=== PATIENT | male | born 1935 | race Caucasian/White ===

== ENCOUNTER 2017-10-17 08:16 | Observation (INO) | payer OTHER ==
[~2017-10-17] VITALS: Ht 180.3 cm; Wt 124.1 kg
[~2017-10-17 08:16] MED LIST: ASCORBIC ACID500 M3 PO; ASPIR-LOW81 MG PO; CENTRUM SILVER1 EAC3 PO; COQ-10100 MG PO; DOXYCYCLINE HYC50 MG PO; LOSARTAN POTASS25 MG PO; METFORMIN HCL500 MG PO; MOVE FREE ULTR1 EACH PO; NORCO 5/3251 TABLET PO; PRAVASTATIN SOD80 MG PO; PRESERVISION A1 EAC2 PO; PRILOSEC20 MG PO; VITAMIN E200 UNI2 PO; ZETIA10 MG PO
[2017-10-17 09:12] LABS: BASOPHIL (%) 0.4 % (0-1); BASOPHIL COUNT 0.1 K/uL (0-0.1); EOSINOPHIL (%) 1.1 % (0-5); EOSINOPHIL COUNT 0.2 K/uL (0-0.3); HEMATOCRIT 37.8 % (38.0-50.0); HEMOGLOBIN 12.7 G/DL (12.5-16.6); IMMATURE GRANULOCYTE (%) 0.5 % (0.0-0.7); LYMPHOCYTE (%) 12.5 % (15-42); MCH 30.9 PG (29.0-34.0); MCHC 33.6 G/DL (30.0-36.0); NEUTROPHIL (%) 79.5 % (45-76); NEUTROPHIL COUNT 12.8 K/uL (1.8-6.4); PLATELET COUNT 230 K/uL (156-360); RBC DIS.WIDTH-CV 14.3 % (11.8-14.6); RBC DIS.WIDTH-SD 48.5 % (39-53); RED BLOOD COUNT 4.11 M/uL (4.00-5.50); WHITE BLOOD COUNT 16.1 K/uL (4.1-10.2)
[2017-10-17 09:20] LABS: CHLORIDE 108 mEq/L (99-109); POTASSIUM 4.7 mEq/L (3.7-5.4); SODIUM 142 mEq/L (136-147)
[2017-10-17 09:22] LABS: GLUCOSE 227 mg/dL (70-99)
[2017-10-17 09:26] LABS: GFR ESTIMATE (CALCULATED) > 59 mL/min/ (58.99-99999); UREA NITROGEN (BUN) 28 mg/dL (9-23)
[2017-10-17] MEDS ORDERED: ODORLESS GARL1250 MG PO (12:10)
[2017-10-17] MEDS ORDERED: GLIPIZIDE ER2.5 MG PO (12:10)
[2017-10-17] MEDS ORDERED: PIOGLITAZONE HC15 MG PO (12:10)
[2017-10-17 14:54] LABS: HEMOGLOBIN A1c (GLYCOHEMOGLOB) 6.6 % (Below 5.7)
[2017-10-17 15:14] VITALS: BP 152/68
[2017-10-17 19:00] VITALS: BP 120/59
[2017-10-17 19:49] LABS: HEMATOCRIT 34.7 % (38.0-50.0); HEMOGLOBIN 11.3 G/DL (12.5-16.6)
[2017-10-17 23:57] VITALS: BP 119/58
[2017-10-18 01:58] LABS: HEMOGLOBIN 10.2 G/DL (12.5-16.6); MCV 90.9 FL (86-99)
[2017-10-18 03:40] VITALS: BP 177/63
[2017-10-18 07:12] VITALS: BP 138/65
[2017-10-18 08:52] LABS: BASOPHIL (%) 0.6 % (0-1); BASOPHIL COUNT 0.1 K/uL (0-0.1); EOSINOPHIL (%) 2.8 % (0-5); EOSINOPHIL COUNT 0.3 K/uL (0-0.3); HEMATOCRIT 30.3 % (38.0-50.0); HEMOGLOBIN 10.1 G/DL (12.5-16.6); IMMATURE GRANULOCYTE (%) 0.4 % (0.0-0.7); LYMPHOCYTE (%) 26.4 % (15-42); LYMPHOCYTE COUNT 2.7 K/uL (1.0-2.8); MCH 30.7 PG (29.0-34.0); MCHC 33.3 G/DL (30.0-36.0); MCV 92.1 FL (86-99); MONOCYTE (%) 8.3 % (3-12); MONOCYTE COUNT 0.8 K/uL (0-0.8); NEUTROPHIL (%) 61.5 % (45-76); NEUTROPHIL COUNT 6.3 K/uL (1.8-6.4); PLATELET COUNT 203 K/uL (156-360); RBC DIS.WIDTH-CV 14.5 % (11.8-14.6); RBC DIS.WIDTH-SD 48.7 % (39-53); RED BLOOD COUNT 3.29 M/uL (4.00-5.50); WHITE BLOOD COUNT 10.2 K/uL (4.1-10.2)
[2017-10-18 08:53] LABS: HEMATOCRIT 30.8 % (38.0-50.0); MCV 93.1 FL (86-99)
[2017-10-18 09:18] LABS: ALBUMIN 3.2 G/DL (3.2-4.8); ALKALINE PHOSPHATASE 37 IU/L (3-129); ALT (GPT) 8 IU/L (3-49); AST (GOT) 12 IU/L (2-34); CHLORIDE 109 MEQ/L (99-109); CREATININE 0.7 MG/DL (0.6-1.3); GFR ESTIMATE (CALCULATED) > 59 mL/min/ (58.99-99999); GLUCOSE 154 mg/dL (70-99); POTASSIUM 4.2 MEQ/L (3.7-5.4); SODIUM 140 MEQ/L (136-147); TOTAL BILIRUBIN 0.6 MG/DL (0.0-1.0); TOTAL PROTEIN 4.7 G/DL (6.4-8.3); UREA NITROGEN (BUN) 20 mg/dL (9-23)
[2017-10-18 11:38] VITALS: BP 123/58
[2017-10-18 16:05] VITALS: BP 125/66
[2017-10-18 19:52] VITALS: BP 171/78
[2017-10-18 21:21] VITALS: BP 158/76
[2017-10-18 22:45] LABS: APPEARANCE CLEAR ((CLEAR)); BILIRUBIN NEGATIVE; BLOOD NEGATIVE; COLOR YELLOW ((YELLOW)); GLUCOSE (STRIP) 150; KETONES NEGATIVE; LEUKOCYTES NEGATIVE; NITRITE NEGATIVE; PROTEIN (STRIP) NEGATIVE; SPECIFIC GRAVITY 1.019 (1.000-1.030); UCUL ADDED? NO; UROBILINOGEN 0.2 MG/DL (0.2-1.0)
[2017-10-19 00:27] VITALS: BP 118/61
[2017-10-19 04:18] VITALS: BP 157/69
[2017-10-19 05:43] LABS: HEMATOCRIT 29.1 % (38.0-50.0); HEMOGLOBIN 9.6 G/DL (12.5-16.6); MCH 30.4 PG (29.0-34.0); MCV 92.1 FL (86-99); PLATELET COUNT 202 K/uL (156-360); RBC DIS.WIDTH-CV 14.5 % (11.8-14.6); RED BLOOD COUNT 3.16 M/uL (4.00-5.50); WHITE BLOOD COUNT 9.8 K/uL (4.1-10.2)
[2017-10-19 07:11] VITALS: BP 132/61
[2017-10-19] MEDS ORDERED: FEOSOL325 MG PO (09:25)
== END 2017-10-19 11:31 | disposition home or self-care (01) ==
LOC: EME 08:16 → EDOF 11:12 → 5WEST 11:12 → EDOF 11:12 → ENRESERV 11:26 → EDOF 11:28 → ENRESERV 12:55 → 5WEST 14:27 → ENRESERV 10-19 07:29 → 4SOUTH 10-19 07:45
PROVIDERS: Emergency Medicine; Family Medicine; Internal Medicine; Internal Medicine Gastroenterology; Physician Assistant Medical
DX: K92.2 Gastrointestinal hemorrhage, unspecified (principal); Z98.890 Other specified postprocedural states; Z86.010 Personal history of colon polyps; D50.0 Iron deficiency anemia secondary to blood loss (chronic); E78.5 Hyperlipidemia, unspecified; Z85.46 Personal history of malignant neoplasm of prostate; Z92.3 Personal history of irradiation; E11.9 Type 2 diabetes mellitus without complications; Z79.84 Long term (current) use of oral hypoglycemic drugs; Z79.82 Long term (current) use of aspirin; Z87.891 Personal history of nicotine dependence; M19.90 Unspecified osteoarthritis, unspecified site; Z88.8 Allergy status to other drugs, medicaments and biological substances
CPT/HCPCS: 80048; 80053; 81003; 82948; 83036; 85014; 85018; 85025; 85027; 85610; 86850; 86900; 86901; 87040; 93005; 99281; 99285; C9113; G0378; G8978 GP CI; G8979 GP CH; G8980 GP CI; J1756; J1815; J7030; J7050